=== PATIENT | male | born 1980 | race Two or more races ===

== ENCOUNTER 2021-04-08 21:37 | Emergency (ER) | payer OTHER ==
[~2021-04-08] VITALS: Ht 172.7 cm; Wt 84.9 kg
--- NOTE | 2021-04-08 22:19 | PHYS DOC ---
Past Medical History Past Surgical History: Appendectomy General Adult EDM: Chief Complaint: LACERATION/AVULSION HPI: HPI: Patient is a 40-year-old male who presents to the emergency department today for a laceration to his left index finger that occurred at 1700. 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 Patient is reporting pain to the area 6 out of 10. He is unsure of his last tetanus shot. He denies any decreased range of motion or decreased sensation to his finger. Patient does speak Mongolian but Maltese is his primary language and a caseworker intake was used. Review of Systems: Review of Systems: Musculoskeletal: See HPI Integument: See HPI Neurologic: See HPI Heart Score: C/O Chest Pain: N/A Risk Factors: Risk Factors: DM, Current or recent (<one month) smoker, HTN, HLP, family history of CAD, obesity. Risk Scores: Score 0 - 3: 2.5% MACE over next 6 weeks - Discharge Home Score 4 - 6: 20.3% MACE over next 6 weeks - Admit for Clinical Observation Score 7 - 10: 72.7% MACE over next 6 weeks - Early Invasive Strategies Current Medications: Current Medications Medications (Trade) Dose Ordered Sig/Pillo Start Time Stop Time Status Last Admin Dose Admin Diphtheria/ Tetanus/Acell Pertussis (Boostrix) 0.5 ml ONCE ONCE 04/08/21 22:15 04/08/21 22:16 UNV Lidocaine HCl (Lidocaine 1% 20ml Vial) 20 ml 1X ONCE 04/08/21 22:15 04/08/21 22:16 UNV Allergies: Allergies: Allergies Coded Allergies Type Severity Reaction Last Updated Verified No Known Drug Allergies 04/08/21 No Physical Exam: PE: Constitutional: Well developed, well nourished, no acute distress, non-toxic appearance. [] HENT: Normocephalic, atraumatic, bilateral external ears normal, oropharynx moist, no oral exudates, nose normal. [] Eyes: PERRL, EOMI, conjunctiva normal, no discharge. [] Neck: Normal range of motion, no stridor Cardiovascular: Normal peripheral perfusion Lungs & Thorax: No work of breathing, no tachypnea Abdomen: Soft and flat Skin: Warm, dry, no erythema, no rash. [] 3centimeter laceration noted to the palmar aspect of left index finger, bleeding is controlled, range of motion intact, neuro intact, no tendon involvement, no visible foreign bodies. Back: Normal range of motion Extremities: No tenderness, no cyanosis, no clubbing, ROM intact, no edema. [] Neurologic: Alert and oriented X 3, normal motor function, normal sensory function, no focal deficits noted. [] Psychologic: Affect normal, judgement normal, mood normal. [] Current Patient Data: Vital Signs: Vital Signs Date Time Temp Pulse Resp B/P (MAP) Pulse Ox O2 Delivery O2 Flow Rate FiO2 04/08/21 21:59 97.7 65 16 141/74 (96) 98 97.7 EKG: EKG: [] Radiology/Procedures: Radiology/Procedures: [] Course & Med Decision Making: Course & Med Decision Making Pertinent Labs and Imaging studies reviewed. (See chart for details) [] Patient presents to the emergency department for a laceration to the dorsal aspect of his left index finger. This was cleansed in the emergency department with saline and chlorhexidine scrub and laceration repair with sutures was performed. Patient had no tendon involvement or foreign bodies visualized. Patient is neurovascularly intact and range of motion is also intact. Patient tolerated procedure. Dressing was placed. Patient educated on wound care and suture removal. I discussed with patient all findings as well as the need to follow-up with PCP for further evaluation and treatment or return to the ER if any new or worsening symptoms. Strict return precautions were also discussed at length. Patient voiced understanding and agreement with the plan. Patient is hemodynamically stable at the time of disposition. Micaela Disclaimer: Micaela Disclaimer: This electronic medical record was generated, in whole or in part, using a voice recognition dictation system. Laceration Repair Lac Repair Time: Left index finger Confirmed: Patient, procedure, site, and site correct Consent: Patient has given verbal consent Laceration location: Palmar aspect of left index finger Shape: Linear Depth: With subcutaneous Details: Clean with no foreign material Neurovascular, tendon exam: Intact Anesthesia: 1% lidocaine digital block Preparation: Sterile field established Irrigation: Wound irrigated with sterile saline and chlorhexidine Skin closure: Simple interrupted sutures placed Size of suture: 6-0 Ethilon Number of sutures: 9 Complexity: Single layer Post procedure exam: Circulation, motor, sensory exam intact, bleeding controlled. Complications: None Patient tolerated: Well Performed by: self Total time: 35 minutes Departure Departure Impression: Primary Impression: Laceration Disposition: 01 HOME / SELF CARE / HOMELESS Condition: GOOD Patient Instructions: Laceration Care, Adult Additional Instructions: You were seen in the emergency department today for a laceration to your finger. This was cleansed in the emergency department and repaired with sutures. Please keep your finger clean and dry. You can wash it with warm water and mild soap. Please do not submerge your hand in any water for 48 hours. You can take Tylenol and/ibuprofen for pain. Your tetanus was updated in the emergency department today. Your finger was placed in an aluminum splint so that you do not bend that finger and it will prevent the sutures from coming out prematurely. Please keep your laceration covered with a dressing. Please return to the emergency department or follow-up with your primary care provider in 7 to 10 days to have the stitches removed. Monitor for any signs of infection which include redness, warmth, swelling or drainage. If you develop any of these findings or decreased range of motion of your finger or decrease sensation in your finger, fevers, intractable nausea or vomiting please return to the emergency department immediately. MANNY VARGAS APRN Apr 08, 2021 22:19
[2021-04-08] MEDS ORDERED: LIDOCAINE 1% Multi-Dose 20 ML VIAL. INJ ONE (22:30)
[2021-04-08] MEDS ORDERED: DIPHTH,PERTUSS(ACELL),TET TOX 0.5 ML DISP.SYRIN. VAX IM ONE (22:30)
[2021-04-08 23:20] VITALS: BP 135/82
== END 2021-04-08 23:23 | disposition home or self-care (01) ==
LOC: ER 21:37
DX: S61.211A Laceration without foreign body of left index finger without damage to nail, initial encounter (principal); W26.0XXA Contact with knife, initial encounter; Y93.89 Activity, other specified; Y92.89 Other specified places as the place of occurrence of the external cause; Y99.8 Other external cause status
CPT/HCPCS: 12002; 29130; 90471; 90715; 99283; J3490